=== PATIENT | male | born 1955 | race Caucasian/White ===

== ENCOUNTER 2024-06-16 09:58 | Emergency (ER) | payer MEDICARE, OTHER ==
[~2024-06-16] VITALS: Ht 172.7 cm; Wt 80.0 kg
[2024-06-16 11:48] LABS: BASOPHILS % (AUTO) 0.3 % (0-1); EOSINOPHILS # (AUTO) 0.2 X10'3 (0-0.9); EOSINOPHILS % (AUTO) 1.5 % (0-6); HEMATOCRIT 43.4 % (42.0-52.0); HEMOGLOBIN 14.1 g/dl (14.0-17.9); LYMPHOCYTES # (AUTO) 3.5 X10'3 (1.1-4.8); LYMPHOCYTES % (AUTO) 29.6 % (21-51); MEAN CORPUSCULAR HEMOGLOBIN 29.1 PG (27.0-31.0); MEAN CORPUSCULAR HGB CONC 32.4 g/dL (33.0-36.5); MEAN CORPUSCULAR VOLUME 89.8 FL (78-98); MEAN PLATELET VOLUME 8.1 FL (7.4-10.4); MONOCYTES # (AUTO) 0.9 X10'3 (0-0.9); MONOCYTES % (AUTO) 7.5 % (2-12); NEUTROPHILS # (AUTO) 7.2 X10'3 (1.8-7.7); NEUTROPHILS % (AUTO) 61.1 % (42-75); PLATELET COUNT 292 X10'3 (140-440); RED BLOOD COUNT 4.84 X10'6 (4.70-6.10); RED CELL DISTRIBUTION WIDTH 14.4 % (11.5-14.5); WHITE BLOOD COUNT 11.8 X10'3 (4.5-11.0)
[2024-06-16 12:18] LABS: ALBUMIN 3.5 G/DL (3.4-5.0); ANION GAP 10 (8-16); BLOOD UREA NITROGEN 15 MG/DL (7-18); BUN/CREATININE RATIO 17.9 (10.0-20.0); CALCIUM 8.6 MG/DL (8.5-10.1); CHLORIDE 108 MMOL/L (99-107); CREATININE 0.84 MG/DL (0.60-1.10); GLUCOSE 95 MG/DL (70-104); POTASSIUM 3.8 MMOL/L (3.5-5.1); PRO BRAIN NATRIURETIC PEPTIDE 308 PG/ML (0-125); SODIUM 143 MMOL/L (135-145); TOTAL CARBON DIOXIDE 24.8 MMOL/L (24-32); eCRCL 79 ML/MIN; eGFR 90 ML/MIN
[2024-06-16] MEDS: CefTRIAXone 2gm/D5W 50ml BAG 50 ML IV ONE (12:38)
[2024-06-16] MEDS: dexamethasone sod phosphate 10mg/ml inj IV STA (12:38)
[2024-06-16] MEDS ORDERED: PRED20TA PO (13:33)
[2024-06-16] MEDS: ipratropium/albuterol 3ml nebule NEB ONE (14:00)
[2024-06-16 14:02] VITALS: PULSE 57; RESP 16; O2SAT 96
[2024-06-16 14:06] VITALS: PULSE 58; RESP 16; O2SAT 99
[2024-06-16 14:15] VITALS: BP 133/75; PULSE 59; RESP 16; TEMP 99; O2SAT 95
== END 2024-06-16 14:19 | disposition home or self-care (01) ==
LOC: ER 09:58
DX: J40 Bronchitis, not specified as acute or chronic (principal)
CPT/HCPCS: 36415; 71046; 80048; 83605; 83880; 84145; 85025; 87040; 94640; 96365; 96375; 99284; A4615; J0696; J1100; 94760

== ENCOUNTER 2024-12-29 10:04 | Day surgery (SDC) | payer MEDICARE, OTHER ==
[2024-12-25 13:12] LABS: MEAN PLATELET VOLUME 8.5 FL (7.4-10.4); RED CELL DISTRIBUTION WIDTH 14.4 % (11.5-14.5)
[2024-12-25 13:26] LABS: APTT 32 SECONDS (22-32); INR 1.7 INR
[2024-12-25 13:34] LABS: CHOL/HDL RATIO 3.0 (0.00-4.99); CREATININE 1.09 MG/DL (0.60-1.10); LDL CHOLESTEROL 79 MG/DL (50-100); TOTAL CARBON DIOXIDE 28.0 MMOL/L (24-32); eGFR 67 ML/MIN
[~2024-12-29] VITALS: Ht 172.7 cm; Wt 92.4 kg
[~2024-12-29 10:04] MED LIST: ALPR-624 PO; BUSP15TA7 PO; CLON0.1T2 PO; PRAV40TA17 PO; SOTA80TA46 PO; TOP100T PO; WARF10TA PO
[2024-12-29] MEDS ORDERED: POTA8CAP20 PO (10:31)
[2024-12-29] MEDS ORDERED: DESV100T16 PO (10:31)
[2024-12-29] MEDS ORDERED: MIDAZolam 1mg/ml 10ml vial IV ONE (10:35)
[2024-12-29] MEDS ORDERED: fentaNYL/PF 50MCG/1 ML 2ML syringe IV ONE (10:35)
[2024-12-29 10:40] VITALS: BP 123/83; PULSE 86; RESP 13; TEMP 98.2; O2SAT 96
[2024-12-29] MEDS: normal saline 1000ml 1,000 ML IV SCH (10:48)
[2024-12-29] MEDS ORDERED: atropine 0.1mg/ml 10ml syringe ONE (12:13)
[2024-12-29] MEDS ORDERED: amiodarone 50MG/ML inj IV ONE (12:13)
[2024-12-29] MEDS ORDERED: midazolam 1 mg/ML 2ml injection ONE ×3 (12:13→12:52)
[2024-12-29] MEDS ORDERED: fentaNYL/PF 50MCG/1 ML 2ML syringe ONE (12:13)
[2024-12-29 13:17] VITALS: BP 105/73; PULSE 64; RESP 12; O2SAT 93
[2024-12-29 13:30] VITALS: BP 91/65; PULSE 61; RESP 20; O2SAT 92
[2024-12-29 13:45] VITALS: BP 110/74; PULSE 56; RESP 15; O2SAT 95
--- NOTE | 2024-12-29 13:48 | ELECTROCARDIOGRAPH REPORT ---
[facility] Test Date: 2024-12-29 Test Time: 13:43:59 Pat Name: TEENA JO Department: [facility] Patient ID: [facility]-[id number] Room: Gender: M User Interface Artist: : [id number] Requested By: LEEANN DE LEON Order Number: [id number] Reading MD: Dr. Merry De Leon Measurements Intervals [place] Rate: 56 P: 72 IN: 206 QRS: 43 QRSD: 104 T: 40 QT: 478 QTc: 462 Interpretive Statements Sinus rhythm Electronically Signed On 12-30-2024 6:39:[address] Merry De Leon Please click the below link to view image of tracing.
[2024-12-29 13:53] VITALS: BP 113/72; PULSE 57; RESP 12; O2SAT 97
--- NOTE | 2025-01-09 12:25 | CARDIOLOGY REPORT ---
DATE OF SERVICE: 12/29/2024 DICTATING PHYSICIAN: Merry De Leon MD DATE OF PROCEDURE: 12/29/2024 NAME OF STUDY: Electrical cardioversion. PROCEDURE: The patient was brought to cardiac short stay where he was prepped in the usual manner. After gradual increments of Versed and fentanyl, and conscious sedation was obtained, the patient was cardioverted. The patient remained clinically and hemodynamically stable throughout the procedure. IMPRESSION: Successful electrical cardioversion to normal sinus rhythm without complication. Merry De Leon MD TID: [id number] RECEIPT: [id number] ELDER/RAJNI/JACK
== END 2024-12-29 14:00 | disposition home or self-care (01) ==
LOC: SSTAY O 10:04
PROVIDERS: ATTEND Student in an Organized Health Care Education/Training Program
DX: I48.91 Unspecified atrial fibrillation (principal); I10 Essential (primary) hypertension; E78.00 Pure hypercholesterolemia, unspecified; G47.33 Obstructive sleep apnea (adult) (pediatric); Z79.899 Other long term (current) drug therapy
CPT/HCPCS: 36415; 80048; 80061; 85025; 85610; 85730; 92960; 93005; J2250; J3010; J7030; 99152; 99153; J0282; J0461